=== PATIENT | female | born 1950 | race Caucasian/White ===

== ENCOUNTER → 2018-11-29 | Outpatient (CLI) | payer MEDICARE, OTHER ==
[~2018-11-29] MED LIST: ALLEGRA ALLERG180 MG PO; ARMOUR THYROID15 M1 PO; AVAGE30 GM; AVAPRO 150 MG150 M1; CIPRO500 M1 PO; HYDROCODONE-APA1 TA1 PO; PYRIDIUM200 M2 PO; SUDAFED 12 HOU120 MG PO
== END ==
LOC: M.CT 08:15 → M.RAD 08:15 → M.CT 08:30
DX: Z12.31 Encounter for screening mammogram for malignant neoplasm of breast (principal); J32.9 Chronic sinusitis, unspecified; H70.93 Unspecified mastoiditis, bilateral

== ENCOUNTER → 2019-04-01 | Outpatient (CLI) | payer MEDICARE, OTHER | LOC: M.RAD 14:34 | DX: J98.01 Acute bronchospasm (principal); M25.551 Pain in right hip; Z88.8 Allergy status to other drugs, medicaments and biological substances; Z88.2 Allergy status to sulfonamides ==

== ENCOUNTER 2019-06-30 12:59 | Emergency (ER) | payer MEDICARE, OTHER ==
[~2019-06-30] VITALS: Ht 162.6 cm; Wt 82.6 kg
[2019-06-30 13:06] VITALS: BP 158/90
[2019-06-30] MEDS ORDERED: LEVOXYL137 MCG PO (13:10)
[2019-06-30] MEDS ORDERED: DOXYCYCLINE 10100 MG PO (14:29)
== END 2019-06-30 14:50 | disposition home or self-care (01) ==
LOC: M.ERS 12:59
DX: L03.011 Cellulitis of right finger (principal); I10 Essential (primary) hypertension; F17.210 Nicotine dependence, cigarettes, uncomplicated; F12.10 Cannabis abuse, uncomplicated; Z88.0 Allergy status to penicillin; Z79.899 Other long term (current) drug therapy

== ENCOUNTER → 2019-07-03 | Outpatient (CLI) | payer MEDICARE, OTHER ==
[~2019-07-03] MED LIST changes: +DOXYCYCLINE 10100 MG PO; +LEVOXYL137 MCG PO
== END ==
LOC: M.MRI 11:30
DX: M25.751 Osteophyte, right hip (principal); M47.898 Other spondylosis, sacral and sacrococcygeal region; M76.02 Gluteal tendinitis, left hip; M76.01 Gluteal tendinitis, right hip